=== PATIENT | male | born 1995 | race American Indian/Alaskan Native ===

== ENCOUNTER 2019-08-11 18:30 | Emergency (ER) | payer SELFPAY ==
--- NOTE | 2019-08-11 19:15 | Emergency Department Report ---
Blank Doc - Documentation Documentation: 23-year-old male that presents with right leg/calf pain. This initial assessment/diagnostic orders/clinical plan/treatment(s) is/are subject to change based on patient's health status, clinical progression and re- assessment by fellow clinical providers in the ED. Further treatment and workup at subsequent clinical providers discretion. Patient/guardians urged not to elope from the ED as their condition may be serious if not clinically assessed and managed. Initial orders include: 1- Patient sent to [facility] for further evaluation and treatment 2- Doppler US
--- NOTE | 2019-08-11 22:14 | Event Note ---
ED Screening Note Date of service: 08/04/19 ED Screening Note: This initial assessment/diagnostic orders/clinical plan/treatment(s) is/are subject to change based on patients health status, clinical progression and re- assessment by fellow clinical providers in the ED. Further treatment and workup at subsequent clinical providers discretion. Patient/guardian urged not to elope from the ED as their condition may be serious if not clinically assessed and managed. Initial orders include: nsaids,
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
[2019-08-12 00:28] VITALS: BP 145/83
== END 2019-08-12 00:30 | disposition home or self-care (01) ==
LOC: ED 18:30
DX: M79.604 Pain in right leg (principal)

== ENCOUNTER 2022-04-16 06:44 | Emergency (ER) | payer SELFPAY | END 2022-04-16 07:40 | disposition left against medical advice (07) | LOC: ED 06:44 | DX: N48.29 Other inflammatory disorders of penis (principal); Z53.21 Procedure and treatment not carried out due to patient leaving prior to being seen by health care provider ==

== ENCOUNTER 2022-04-16 08:44 | Emergency (ER) | payer SELFPAY ==
[2022-04-16 09:09] VITALS: BP 134/94
[2022-04-16] MEDS ORDERED: dexAMETHasone 4 MG/ML VIAL IM ONE (10:04)
[2022-04-16] MEDS ORDERED: KETOROLAC 60 MG/2 ML INJ IM ONE (10:04)
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
[2022-04-16 10:42] LABS: Bacteria,Urine 1+ /HPF (Negative); Mucus,Urine 3+ /HPF
[2022-04-16 10:59] LABS: Bilirubin,Urine Negative (Negative); Blood,Urine Trace (Negative); Color,Urine Yellow (Yellow); Urobilinogen,Urine < 2.0 mg/dL (<2.0)
== END 2022-04-16 12:07 | disposition home or self-care (01) ==
LOC: ED 08:44
DX: N48.29 Other inflammatory disorders of penis (principal); R30.0 Dysuria; N48.89 Other specified disorders of penis; E11.9 Type 2 diabetes mellitus without complications; Z72.89 Other problems related to lifestyle; Z79.899 Other long term (current) drug therapy
CPT/HCPCS: 81001; 87086; 96372; 99283; J1100; J1885